=== PATIENT | female | born 1955 | race Caucasian/White ===

== ENCOUNTER 2018-10-25 09:50 | Emergency (ER) | payer MEDICARE ==
--- NOTE | 2018-10-25 16:36 | RAD ---
RIGHT KNEE FOUR VIEWS: Date: 10-25-18 FINDINGS: No fracture or dislocation was seen. The patella was unremarkable in appearance. The joint spaces is normal in width. If any joint fluid is present, it is relatively small. IMPRESSION: No definite acute finding. POS: HOME
== END 2018-10-25 10:52 | disposition home or self-care (01) ==
LOC: BURERS 09:50
DX: S89.91XA Unspecified injury of right lower leg, initial encounter (principal); E11.9 Type 2 diabetes mellitus without complications; F41.9 Anxiety disorder, unspecified; Z79.899 Other long term (current) drug therapy; X50.1XXA Overexertion from prolonged static or awkward postures, initial encounter

== ENCOUNTER 2022-10-13 09:43 | Emergency (ER) | payer MEDICARE | END 2022-10-13 11:57 | disposition home or self-care (01) | LOC: BURERS 09:43 | DX: J06.9 Acute upper respiratory infection, unspecified (principal); E11.9 Type 2 diabetes mellitus without complications | CPT/HCPCS: 71046 ==